=== PATIENT | female | born 1965 ===

== ENCOUNTER 2019-05-22 14:43 | Emergency (ER) | payer BC ==
--- NOTE | 2019-05-22 14:48 | UC ---
Hand/Wrist HPI - HPI Summary HPI Summary: 54 yo female presents with left 4th digit pain. She tells me that about 3-4 days ago she pulled off a long hangnail at this digit and since that time has had pain, swelling, and redness. 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 Denies fever or chills - History Of Current Complaint Stated Complaint: SOFT TISSUE HAND Time Seen by Provider: 05/22/19 14:48 Hx Obtained From: Patient Onset/Duration: Gradual Onset Severity Initially: Mild Severity Currently: Moderate Pain Intensity: 5 Pain Scale Used: 0-10 Numeric - Allergies/Home Medications Allergies/Adverse Reactions: Allergies Allergy/AdvReac Type Severity Reaction Status Date / Time raw vegetable Allergy GI Upset Verified 05/22/19 15:00 artificial sweetners Allergy CHEST PAIN Uncoded 05/22/19 15:00 Home Medications: Home Medications Ramipril 5 mg PO BID 05/22/19 [History Confirmed 05/22/19] Sertraline* [Zoloft*] 100 mg PO DAILY 05/22/19 [History Confirmed 05/22/19] amLODIPine TAB* [Norvasc 5 mg TAB*] 5 mg PO DAILY 05/22/19 [History Confirmed ] PMH/Surg Hx/FS Hx/Imm Hx Cardiovascular History: Hypertension Psychological History: Anxiety, Depression - Surgical History Surgical History: Yes Surgery Procedure, Year, and Place: Tonsillectomy - Family History Known Family History: Positive: Hypertension - Social History Occupation: Employed Full-time Lives: With Family Alcohol Use: Occasionally Substance Use Type: None Smoking Status (MU): Never Smoked Tobacco Review of Systems All Other Systems Reviewed And Are Negative: No Constitutional: Positive: Negative Skin: Positive: Other - left 4th digit pain Respiratory: Positive: Negative Cardiovascular: Positive: Negative Neurological: Positive: Negative Psychological: Positive: Negative Physical Exam - Summary Physical Exam Summary: GENERAL: NAD. WDWN. No pain distress. SKIN: LEFT 4th digit: distal aspect at ulnar nail-skin fold with mild erythema and edema with central white pocket. Mildly TTP and warm. CHEST: No accessory muscle use. Breathing comfortably and in no distress. CV: Pulses intact. Cap refill <2seconds NEURO: Alert. PSYCH: Age appropriate behavior. Triage Information Reviewed: Yes Vital Signs: Vital Signs: Temp Pulse Resp BP Pulse Ox 99.2 F 97 18 165/94 97 05/22/19 15:02 05/22/19 15:02 05/22/19 15:02 05/22/19 15:02 05/22/19 15:02 Vital Signs Reviewed: Yes Procedures - Incision and Drainage 1 Anesthesia: Other - None Instrument(s): Needle - 22G Packing: Other Hand/Wrist Course/Dx - Course Course Of Treatment: The procedure was explained to the pt and all questions were answered. A time out was performed, witnessed, and signed. The area was cleansed with an alcohol pad. A 22G needle was used to carl the paronychia and moderate white/yellow purulent matter was expressed. A culture was obtained. Homeostasis achieved. The wound was bandaged with a band-aid. Pt tolerated procedure well. Will rx for augmentin. - Differential Dx/Diagnosis Provider Diagnosis: Paronychia Discharge ED - Sign-Out/Discharge Documenting (check all that apply): Patient Departure All imaging exams completed and their final reports reviewed: No Studies - Discharge Plan Condition: Stable Disposition: HOME Prescriptions: Amoxicillin/Clavulanate TAB* [Augmentin TAB 875*] 875 mg PO BID #14 tab Patient Education Materials: Paronychia (ED) Referrals: Jigar Vo MD [Primary Care Provider] - Additional Instructions: If you develop a fever, shortness of breath, chest pain, new or worsening symptoms - please call your PCP or go to the ED immediately. Your blood pressure was high at todays visit. Please see your primary provider within 4 weeks for recheck and re-evaluation. - Billing Disposition and Condition Condition: STABLE Disposition: Home - Attestation Statements Provider Attestation: Per institutional requirements, I have reviewed the chart, however, I was not consulted specifically or made aware of this patient by the midlevel provider. I did not personally evaluate, interact with , or disposition this patient.
== END 2019-05-22 15:25 | disposition home or self-care (01) ==
LOC: UCEAST 14:43
DX: L03.012 Cellulitis of left finger (principal); I10 Essential (primary) hypertension; F41.9 Anxiety disorder, unspecified; F32.9 Major depressive disorder, single episode, unspecified; Z91.018 Allergy to other foods; Z79.899 Other long term (current) drug therapy
CPT/HCPCS: 10060; 87070; 87077; 87186; 87205; 87640; 87641; 99202; G0463